=== PATIENT | male | born 1970 | race Hispanic/Latino ===

== ENCOUNTER 2018-08-31 03:36 | Emergency (ER) | payer OTHER ==
[~2018-08-31] VITALS: Ht 170.2 cm; Wt 108.9 kg
[2018-08-31] MEDS ORDERED: ACETAMINOPHEN 325 MG TAB PO ONE (04:00)
[2018-08-31] MEDS ORDERED: ONDANSETRON HCL 4 MG ORAL DISINTEGRATING TAB PO ONE (04:00)
[2018-08-31] MEDS ORDERED: IBUPROFEN 200 MG TAB PO SCH (04:00)
--- NOTE | 2018-08-31 04:47 | Diagnostic Imaging Report ---
EXAMINATION: CXR 2 VIEW - HOPD INDICATION: Fever, body aches, generalized body pain COMPARISON: None FINDINGS: PA and lateral views TUBES and LINES: None. LUNGS: Lungs are well inflated. Lungs are clear. There is no evidence of pneumonia or pulmonary edema. PLEURA: No pleural effusion or pneumothorax. HEART AND MEDIASTINUM: The cardiomediastinal silhouette is unremarkable. BONES AND SOFT TISSUES: No acute osseous lesion. Soft tissues are unremarkable. UPPER ABDOMEN: No free air under the diaphragm. IMPRESSION: No acute thoracic abnormality. Signed by: DR. Eladio Arellano MD on 08/31/2018 4:43 AM
== END 2018-08-31 04:55 | disposition home or self-care (01) ==
LOC: FSED 03:36
DX: R50.9 Fever, unspecified (principal); R05 Cough; J11.1 Influenza due to unidentified influenza virus with other respiratory manifestations
CPT/HCPCS: 71046; 87400; 99283